=== PATIENT | male | born 1990 | race Two or more races ===

== ENCOUNTER 2023-12-03 08:42 | Day surgery (SDC) | payer OTHER ==
[~2023-12-03 08:42] MED LIST: Sodium Chloride 0.9% 10 ML Syringe FLUSH PRN; Sodium Chloride 0.9% 2.5 ML Syringe FLUSH PRN; Sodium Chloride 0.9% 20 ML SDV IV PRN
[2023-12-03] MEDS ORDERED: Propofol 200 MG/20 ML SDV ONE (09:11)
[2023-12-03] MEDS: Lactated Ringers 1,000 ML IV SCH (09:15)
== END 2023-12-04 11:15 | disposition home or self-care (01) ==
LOC: MW.SDS 08:42
PROVIDERS: ATTEND Surgery
DX: K29.50 Unspecified chronic gastritis without bleeding (principal); K21.9 Gastro-esophageal reflux disease without esophagitis; K31.9 Disease of stomach and duodenum, unspecified; I10 Essential (primary) hypertension; E66.9 Obesity, unspecified; Z79.899 Other long term (current) drug therapy
CPT/HCPCS: 43239; J2704; J7120; 00731